=== PATIENT | male | born 1980 | race Caucasian/White ===

== ENCOUNTER 2019-08-18 17:54 | Emergency (ER) | payer SELFPAY ==
[2019-08-18] MEDS ORDERED: Lactated Ringers 1,000 ML IV ONE ×2 (17:55→19:00)
[2019-08-18] MEDS ORDERED: Iopamidol 755 Mg/ML 100 ML Bottle IVPUSH ONE (18:03)
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
--- NOTE | 2019-08-18 18:24 | CT ---
Head CT Technique: Multiple axial sections through the brain were obtained. Intravenous contrast was not utilized. Comparison: No prior intracranial imaging is available. Findings: Ventricles along with basal cisterns and sulci over the convexities are within normal limits for the patient's age. No abnormal parenchymal densities are seen. No evidence of intracranial hemorrhage. Mild mucosal thickening is seen within the inferior left maxillary sinus. Equivocal small air-fluid level within the left maxillary sinus. Minimal mucosal thickening is seen within the upper ethmoid and frontal sinuses. Visualized mastoid sinuses are clear. No acute calvarial finding is seen. Impression: 1. Sinus findings on the left side. This may be chronic but difficult to exclude mild acute left maxillary sinusitis. Please correlate with the patient's symptoms. 2. No acute intracranial abnormality is appreciated. No acute calvarial abnormality is appreciated. Diagnostic code #3 This report was dictated in MDT
--- NOTE | 2019-08-18 18:38 | CT ---
Addendum: Lucent line identified within the hyoid bone. This is fairly well-corticated. This could possibly represent a fracture if patient is symptomatic in this area. Finding is otherwise old. --- Addendum1 above dictated on [08/18/2019 18:46] by [Maria Antonia Granados, Roland Mendez] --- --- Addendum1 above signed on [08/18/2019 18:46] by [Maria Antonia Granados Hilton J.] --- --- Original report below dictated on [08/18/2019 18:35] by [Maria Antonia Granados, Roland Mendez] --- --- Original report below signed on [08/18/2019 18:36] by [Maria Antonia Granados, Roland Mendez] --- CT cervical spine Technique: Multiple axial sections were obtained from above C1 inferiorly to the bottom of T2. Reconstructed sagittal and coronal images were obtained. Findings: Vertebral body heights and disc spaces are maintained. Vertebral bodies and posterior arches are intact with no fracture being seen. No bony central or bony neural foraminal stenosis is seen. No subluxation is seen. Impression: 1. Nothing acute is seen on CT study of the cervical spine. Diagnostic code #1 This report was dictated in MDT --- Addendum1 signed ---
[2019-08-18] MEDS ORDERED: Ketamine 500 mg/10 ML MDV ONE (19:00)
[2019-08-18] MEDS ORDERED: Midazolam 1 MG/ML 5 ML SDV ONE (19:00)
[2019-08-18] MEDS ORDERED: Etomidate 2 MG/ML 20 ML SDV IVPUSH ONE (19:00)
[2019-08-18] MEDS ORDERED: Succinylcholine 200 MG/10 ML MDV ONE (19:00)
[2019-08-18] MEDS ORDERED: propofoL 100 ML ONE (19:07)
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
[2019-08-18] MEDS ORDERED: Midazolam 5 MG/ML 10 ML MDV ONE (19:16)
[2019-08-18] MEDS ORDERED: Sodium Chloride 0.9% 100 ML ONE (19:16)
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
--- NOTE | 2019-08-20 09:39 | CT ---
CT lumbar spine Technique: Multiple axial sections through the lumbar spine were obtained. Reconstructed coronal and sagittal images were reviewed. Findings: Vertebral body heights and disc spaces are maintained. Mild anterior endplate osteophyte off the superior endplate of L5. No acute fracture is seen within the lumbar spine. No abnormal subluxation is seen. No acute disc herniation is appreciated. Impression: 1. Nothing acute is seen on CT study of the lumbar spine. Diagnostic code #2 This report was dictated in MDT I agree with preliminary report from jerry, finalized on 08/18/19, 8:13 PM Central Daylight Time
--- NOTE | 2019-08-20 09:40 | CT ---
CT thoracic spine Technique: Multiple axial sections through the thoracic spine were obtained. Reconstructed coronal and sagittal images were obtained. Findings: Numerous right-sided rib fractures are partially visualized. Mild degenerative change is noted within the spine. No acute fracture is seen within the thoracic spine. Impression: 1. Multiple right-sided rib fractures are partially visualized. 2. Mild degenerative change within the thoracic spine. Thoracic spine shows nothing acute. Diagnostic code #3 This report was dictated in MDT I agree with preliminary report from jerry, finalized on 08/18/19, 8:16 PM Central Daylight Time
--- NOTE | 2019-08-20 09:41 | CR ---
Chest: Portable supine view of the chest was obtained. Comparison: No prior chest x-ray, previous chest CT performed earlier on the same day (6:15 PM) Pleural thickening is seen along the right lateral chest in area of previous rib fractures that were noted on chest CT. Lungs otherwise are clear without acute parenchymal change. Endotracheal tube is partially seen which lies significantly above the clavicles and should be advanced. Nasogastric tube courses off the inferior edge of the film past the gastroesophageal junction. Impression: 1. Endotracheal tube significantly above the clavicles and should be advanced. 2. Nasogastric tube with tip lying below the level of the gastroesophageal junction. 3. Pleural thickening along the right lateral chest with right-sided rib fractures. Diagnostic code #3 This report was dictated in MDT
--- NOTE | 2019-08-20 09:41 | CT ---
CT chest Technique: Multiple axial sections through the chest were obtained intravenous contrast was utilized. Comparison: No prior chest imaging is available. Findings: Fracture is noted anteriorly within the right 2nd rib with displacement. Displaced fracture is noted within the anterior right 3rd rib. Displaced fracture is noted within the anterior 4th rib. Displaced fracture is noted within the anterolateral 5th rib. Minimally displaced fracture is noted within the lateral 6th rib as well as nondisplaced fracture within the lateral 7th rib. No additional rib fractures are definitely appreciated. Lateral reconstructed images of the sternum shows no discrete abnormality. Vertebral body heights are maintained within the thoracic spine without definite fracture. Aorta shows contrast enhancement without aneurysm. No mediastinal hematoma seen. No pericardial effusion is seen. Small right-sided pleural effusion is noted. Pleural thickening is noted within the upper right lateral chest compatible with pleural hematoma from rib fractures. Minimal air is noted within these areas of pleural thickening and pleural effusion. Focal linear density is noted within the right middle lobe next to the major fissure compatible with atelectasis or scarring. Lungs otherwise are clear. Impression: 1. Multiple right-sided rib fractures as described above. Adjacent pleural thickening compatible with pleural hematoma as well as a small amount of fluid within the right pleural space. Minimal air within the pleural space is also seen which appears to represent minimal loculated pneumothoraces. 2. Atelectasis or scarring within the right middle lobe next to the major fissure. 3. No other acute abnormality is appreciated. Diagnostic code #5 This report was dictated in MDT I agree with preliminary report from [facility], finalized on 08/18/19, 8:[address] abdomen and pelvis Technique: Multiple axial sections were obtained from above the dome of the diaphragm inferiorly through the pubic symphysis. Intravenous contrast was utilized. No oral contrast has been given. Comparison: No prior abdominal imaging is available. Findings: Liver shows no focal parenchymal abnormality. Spleen appears within normal limits. Adrenal glands contain no nodule. Gallbladder contains no calcified gallstones. Kidneys show symmetric contrast enhancement without hydronephrosis or mass. Aorta shows no aneurysm. No retroperitoneal adenopathy or mesenteric abnormalities are appreciated. No pelvic mass or adenopathy is seen. No free fluid is seen. Soft tissue contusion is noted posteriorly within the subcutaneous fat next to the paraspinous muscles. Bone window settings were reviewed which shows no definite acute finding. Impression: 1. Subcutaneous hematoma within the posterior back next of the paraspinous muscles. 2. No acute intra-abdominal or intrapelvic abnormality is appreciated. Diagnostic code #2 This report was dictated in MDT I agree with preliminary report from [facility], finalized on 08/18/19, 8:09 PM [place] Day[employer] Time
== END 2019-08-18 19:40 ==
LOC: JD.ED 17:54
DX: S27.1XXA Traumatic hemothorax, initial encounter (principal); S22.41XA Multiple fractures of ribs, right side, initial encounter for closed fracture; S12.8XXA Fracture of other parts of neck, initial encounter; R00.0 Tachycardia, unspecified; Z20.828 Contact with and (suspected) exposure to other viral communicable diseases; V89.2XXA Person injured in unspecified motor-vehicle accident, traffic, initial encounter
CPT/HCPCS: 31500; 36415; 43752; 51702; 70450; 71045; 71260; 72125; 72128; 72131; 74177; 80053; 80307; 83605; 84484; 85025; 85610; 85730; 86850; 86900; 86901; 87635; 93005; 99285; J0330; J2250; J2704; J3490; J7050; J7120; Q9967; 93010; U0002